=== PATIENT | female | born 1960 | race Asian ===

== ENCOUNTER → 2020-02-20 13:53 | Outpatient (BNVA) | payer OTHER, SELFPAY | PROVIDERS: PCP Internal Medicine; Visit Provider Urology | DX: Z48.816 Encounter for surgical aftercare following surgery on the genitourinary system (principal); Z87.448 Personal history of other diseases of urinary system | CPT/HCPCS: 51798; 81002; 99212 ==

== ENCOUNTER 2020-02-21 16:37 | Outpatient (REF) | payer OTHER, SELFPAY ==
--- NOTE | 2020-02-21 16:42 | MM_ITS ---
EXAMINATION: MM SCREENING DIGITAL BREAST TOMOSYNTHESIS, BILATERAL CLINICAL INFORMATION: Screening. Asymptomatic. The lifetime risk of breast cancer based on the Tyrer-Cuzick Model is 6%. COMPARISON: Mammography: 01/28/2018 TECHNIQUE: Digital breast tomosynthesis is performed in both the craniocaudal and mediolateral oblique views along with computer-aided detection (CAD). Synthesized 2D images are generated from the tomosynthesis. FINDINGS: There are scattered areas of fibroglandular density (ACR BI-RADS breast composition Category b). There are no significant masses, abnormal calcifications, or other abnormalities. Parenchymal pattern is similar to prior exam. The skin contours are smooth. There are no significant changes. MM/MM tomosynthesis screening BI IMPRESSION: No mammographic evidence of malignancy. ASSESSMENT: BI-RADS 1: Negative RECOMMENDATION: Routine annual mammography screening. This patient's information was entered into a reminder system with a target due date for their next mammogram.
== END 2020-02-21 16:38 | disposition home or self-care (01) ==
LOC: HO.MAMMO 16:37
PROVIDERS: PCP Internal Medicine; Visit Provider Internal Medicine
DX: Z12.31 Encounter for screening mammogram for malignant neoplasm of breast (principal)
CPT/HCPCS: 77063; 77067

== ENCOUNTER → 2020-03-28 10:00 | Outpatient (BNVA) | payer OTHER, SELFPAY | PROVIDERS: PCP Internal Medicine; Visit Provider Physician Assistant | DX: Z76.89 Persons encountering health services in other specified circumstances (principal) ==

== ENCOUNTER 2020-04-03 10:07 | Day surgery (SDC) | payer OTHER, SELFPAY ==
--- NOTE | 2020-04-03 10:17 | HO.ANESPROP2 ---
[facility] Past Medical History Medical History (Updated 03/28/20 @ 14:16 by Bibiana aMza PA-C) Acid reflux H pylori ulcer Hemoptysis Nausea RAFFI (stress urinary incontinence, female) Surgical History Surgical History (Updated 03/28/20 @ 10:02 by Lizzy Crystal) History of colonoscopy History of esophagogastroduodenoscopy (EGD) Social History Social History (Updated 03/28/20 @ 14:02 by Bibiana Maza PA-C) Alcohol intake: never Smoking Status: Never smoker Advance Directives: No Advance Directives Information Provided: Yes Meds Allergies Allergy/AdvReac Type Severity Reaction Status Date / Time No Known Allergies Allergy Verified 02/20/20 14:05 [No Known Allergies*] Home Medications Medication Instructions Recorded Confirmed Type amlodipine 10 mg tablet 10 mg PO DAILY 02/20/20 03/28/20 History omeprazole 20 mg capsule,delayed 20 mg PO Q12H 02/20/20 03/28/20 History release Exam Exam Date and Time: April 03, 2020 1017 Airway Mallampati Class: II TM Dist: >3cm Neck ROM: Full Loose/Missing/Broken Teeth: No Heart: RRR Lungs: CTA Assessment and Plan Assessment Anesthesia Assessment: Anesthesia Plan Discussed and Chart Reviewed Final Anesthetic Review NPO: Yes ASA Class: II Final Preanesthetic Review: Meds/Allgs Chart Reviewed, Consent Obtained/Reviewed and Anes Risks/Benef Reviewed Patient Risk: Low Procedure Risk: Intermediate Anesthetic Plan Anesthetic Plan: MAC: Disposition: Standard PACU
[2020-04-03 10:32] VITALS: BP 132/71; PULSE 62; RESP 16; TEMP 36.7; O2SAT 98; BMI 27.4
[2020-04-03] MEDS: Lactated Ringers 1,000 ML 50 ML IVCONT (10:48)
--- NOTE | 2020-04-03 10:53 | MHC.SHP ---
Pre-Procedural Eval Section A The patient is an INPATIENT: No Changes since office visit: Yes Patient answered all questions; No Cold of Flu in the past 2 weeks, No New Medical Problems and No Changes in Medication The History & Physical has been completed within 30 days and I have reviewed it.: Yes Section B Chief Complaint: reflux Allergies: Allergies Allergy/AdvReac Type Severity Reaction Status Date / Time No Known Allergies Allergy Verified 02/20/20 14:05 [No Known Allergies*] Plan I have reviewed the history and physical and performed a pertinent physical examination on my patient. No changes have occurred unless specified.
--- NOTE | 2020-04-03 11:11 | PM.PROC ---
Brief Operative Note Date of procedure: 04/03/20 Pre-op diagnosis: Intractable reflux, pain, despite acid suppression. Post-op diagnosis: other (Distal esophagitis-Grade 1, Superficial gastritis) Procedure: EGD with BX Video endoscope was introduced with out difficulty. Arytenoid Cartilages edema and mild medial erythema--cords clear. Esophageal mucosa was normal to distal 2 cm--erythema and no erosions. stomach some bile present, distal erythema.Duodenal Bulb and duodenum normal appearing biopsies. Anesthesia: MAC (RICCI Pepper) Surgeon: Lesley Jeong Estimated blood loss (mL): 5 Pathology: other (random gastric) Condition: stable Disposition: other (To followup with TELEVISIT to office in 1-3 weeks.)
[2020-04-03 11:15] VITALS: BP 117/70; PULSE 63; RESP 16; TEMP 36.8
[2020-04-03 11:31] VITALS: BP 122/72; PULSE 61; RESP 18; O2SAT 99
== END 2020-04-03 12:01 | disposition home or self-care (01) ==
PROVIDERS: PCP Internal Medicine; Visit Provider Internal Medicine Gastroenterology
PROC: 0DJ08ZZ Inspection of Upper Intestinal Tract, Via Natural or Artificial Opening Endoscopic (ICD-10-PCS; CPT 43235; principal; 2020-04-03 11:50)
DX: K21.00 Gastro-esophageal reflux disease with esophagitis, without bleeding (principal); K29.30 Chronic superficial gastritis without bleeding; Z79.899 Other long term (current) drug therapy
CPT/HCPCS: 43239; 88305; 88342

== ENCOUNTER → 2020-04-23 09:16 | Outpatient (BNVA) | payer OTHER, SELFPAY | PROVIDERS: PCP Internal Medicine; Visit Provider Physician Assistant ==

== ENCOUNTER → 2022-05-22 08:21 | Outpatient (BNVA) | payer OTHER, SELFPAY | PROVIDERS: PCP Internal Medicine; Visit Provider Physician Assistant | DX: Z12.11 Encounter for screening for malignant neoplasm of colon (principal) | CPT/HCPCS: 99212 ==

== ENCOUNTER 2022-06-12 14:12 | Outpatient (REF) | payer OTHER, SELFPAY ==
--- NOTE | ~2022-06-12 | XR_ITS ---
EXAMINATION: XR LUMBOSACRAL SPINE CLINICAL INFORMATION: Chronic bilateral low back pain. COMPARISON: None available. TECHNIQUE: 3 views of the lumbosacral spine. FINDINGS: Vertebral body heights are normal. No fractures. There is 2 mm of anterolisthesis of L4 on L5. No additional spondylolisthesis. Endplate osteophytes are evident at L3-L4. Intervertebral disc heights appear relatively well preserved. Mild facet arthropathy is suspected in the lower lumbar spine at L4-L5 and L5-S1. SI joints are normal. There is a 4 mm calcification in the right midabdomen at the level of the right L3 transverse process. This may correspond to a ureteral calculus. XR/XR lumbar spine 2-3V IMPRESSION: 1. Mild facet arthropathy in the lower lumbar spine with grade 1 anterolisthesis of L4 on L5. 2. A 4 mm calcification in the right midabdomen at the level of the L3 transverse process which may correspond to a ureteral calculus.
== END 2022-06-12 14:13 | disposition home or self-care (01) ==
LOC: HO.XRAY 14:12
PROVIDERS: Visit Provider Internal Medicine
DX: G89.29 Other chronic pain (principal); M54.50 Low back pain, unspecified
CPT/HCPCS: 72100

== ENCOUNTER 2022-07-24 16:01 | Outpatient (REF) | payer OTHER, SELFPAY ==
--- NOTE | ~2022-07-24 | MM_ITS ---
EXAMINATION: MM SCREENING DIGITAL BREAST TOMOSYNTHESIS, BILATERAL CLINICAL INFORMATION: Screening. Asymptomatic. The lifetime risk of breast cancer based on the Tyrer-Cuzick Model is 4%. COMPARISON: Mammography: 02/21/2020, 01/28/2018 (new baseline). TECHNIQUE: Digital breast tomosynthesis is performed in both the craniocaudal and mediolateral oblique views along with computer-aided detection (CAD). Synthesized 2D images are generated from the tomosynthesis. Additional right MLO view is provided. FINDINGS: There are scattered areas of fibroglandular density (ACR BI-RADS breast composition Category b). There are no significant masses, abnormal calcifications, or other abnormalities. Parenchymal pattern is similar to prior studies. There is no developing density or architectural abnormality. The axilla and skin contours are unremarkable. No significant changes. MM/MM tomosynthesis screening BI IMPRESSION: No mammographic evidence of malignancy. ASSESSMENT: BI-RADS 1: Negative RECOMMENDATION: Routine annual mammography screening. This patient's information was entered into a reminder system with a target due date for their next mammogram.
== END 2022-07-24 16:02 | disposition home or self-care (01) ==
LOC: HO.MAMMO 16:01
PROVIDERS: PCP Internal Medicine; Visit Provider Internal Medicine
DX: Z12.31 Encounter for screening mammogram for malignant neoplasm of breast (principal)
CPT/HCPCS: 77063; 77067

== ENCOUNTER 2022-11-19 17:35 | Outpatient (REF) | payer OTHER, SELFPAY ==
[2022-11-19 19:00] LABS: Influenza A PCR NEGATIVE (Negative); Influenza B PCR NEGATIVE (Negative); Resp Syncy Virus RNA Qual PCR NEGATIVE (Negative); SARS COV2 PCR INHOUSE NEGATIVE (Negative)
== END 2022-11-19 17:36 | disposition home or self-care (01) ==
LOC: HO.HHCLNP 17:35
PROVIDERS: Visit Provider Emergency Medicine
DX: Z20.822 Contact with and (suspected) exposure to COVID-19 (principal); R68.89 Other general symptoms and signs
CPT/HCPCS: 0241U

== ENCOUNTER 2022-12-09 15:04 | Outpatient (REF) | payer OTHER, SELFPAY | END 2022-12-09 15:05 | disposition home or self-care (01) | LOC: HO.HHCX 15:04 | PROVIDERS: Visit Provider Internal Medicine | DX: M25.552 Pain in left hip (principal); M25.561 Pain in right knee; M25.562 Pain in left knee | CPT/HCPCS: 73502; 73560 ==

== ENCOUNTER 2023-01-30 11:25 | Day surgery (SDC) | payer OTHER, SELFPAY ==
--- NOTE | 2023-01-29 10:13 | P.CONAN_ITS ---
Documented by User: Macarena Garcia NP 01/29/23 10:13 HPI - Anesthesia Eval Consult details Narrative: 62yo F for Colonoscopy [facility] [place] Active Problems Active Problems: All Active Problems (Updated 05/22/22 @ 10:56 by Bibiana Maza PA-C) Encounter for screening colonoscopy (Acute) Nausea (Acute) Hemoptysis (Acute) Acid reflux (Acute) Past Medical History Medical History H pylori ulcer Nausea Hemoptysis Acid reflux RAFFI (stress urinary incontinence, female) Surgical History Surgical History History of colonoscopy History of esophagogastroduodenoscopy (EGD) Social History Social History Household Members: Family Household Members Other:: daughter Alcohol intake: never Patient Tobacco Use Status: Never used Tobacco Use of substances other than those prescribed or required for medical reasons: No Are you DNR?: No Advance Directives: No Advance Directives Information Provided: Yes Current occupational status: unemployed Meds Allergies Allergy/AdvReac Type Severity Reaction Status Date / Time No Known Allergies Allergy Verified 01/30/23 12:05 [No Known Allergies*] Home Medications Medication Instructions Recorded Confirmed Last Taken Type amlodipine 10 mg tablet 10 mg PO DAILY 02/20/20 01/30/23 01/29/23 History omeprazole 20 mg capsule,delayed 20 mg PO Q12H 02/20/20 01/30/23 01/29/23 History release cholecalciferol (vitamin D3) 50 50 mcg PO DAILY 05/22/22 01/30/23 01/29/23 History mcg (2,000 unit) capsule (Vitamin D3) Assessment and Plan Assessment Anesthesia Assessment: Chart Reviewed Documented by User: Brenda Person MD 01/30/23 14:37 [facility] [place] Past Medical History Medical History H pylori ulcer Nausea Hemoptysis Acid reflux RAFFI (stress urinary incontinence, female) Family History Family history of problems with anesthesia: No Surgical History Surgical History History of colonoscopy History of esophagogastroduodenoscopy (EGD) History of Problems with Anesthesia: No Social History Social History Household Members: Family Household Members Other:: daughter Alcohol intake: never Patient Tobacco Use Status: Never used Tobacco Use of substances other than those prescribed or required for medical reasons: No Are you DNR?: No Advance Directives: No Advance Directives Information Provided: Yes Current occupational status: unemployed Meds Allergies Allergy/AdvReac Type Severity Reaction Status Date / Time No Known Allergies Allergy Verified 01/30/23 12:05 [No Known Allergies*] Home Medications Medication Instructions Recorded Confirmed Last Taken Type amlodipine 10 mg tablet 10 mg PO DAILY 02/20/20 01/30/23 01/29/23 History omeprazole 20 mg capsule,delayed 20 mg PO Q12H 02/20/20 01/30/23 01/29/23 History release cholecalciferol (vitamin D3) 50 50 mcg PO DAILY 05/22/22 01/30/23 01/29/23 History mcg (2,000 unit) capsule (Vitamin D3) Exam Airway Mallampati Class: II (denies any loose missing/loose) TM Dist: >3cm Neck ROM: Full Heart: rrr Lungs: cta Assessment and Plan Assessment Anesthesia Assessment: Anesthesia Plan Discussed Final Anesthetic Review Family History of Problems with Anesthesia: No History of Problems with Anesthesia: No NPO: Yes ASA Class: II Final Preanesthetic Review: No Changes in Pt Med Stat, Meds/Allgs Chart Reviewed and Consent Obtained/Reviewed Patient Risk: Intermediate Procedure Risk: Intermediate Anesthetic Plan Anesthetic Plan: MAC: Disposition: Standard PACU
[2023-01-30 11:55] VITALS: BMI 27.8
[2023-01-30] MEDS: Lactated Ringers 1,000 ML 100 ML IVCONT (12:18)
[2023-01-30 12:19] VITALS: BP 148/82; PULSE 69; RESP 16; TEMP 36.1; O2SAT 97
--- NOTE | 2023-01-30 12:38 | MHC.SHP ---
Pre-Procedural Eval Section A Date of Service: 01/30/23 The patient is an INPATIENT: No The History & Physical has been completed within 30 days and I have reviewed it.: No Section B Chief Complaint: screening Relevant Family History (Specify if Yes): No Relevant Social History: None Present Medications: see Short Stay Collaborative assessment Medical History: Significant History (Acid reflux H pylori ulcer Hemoptysis Nausea RAFFI (stress urinary incontinence, female)) History of Previous Operations: Relevant previous surgery/procedure and date(s) Allergies: Allergies Allergy/AdvReac Type Severity Reaction Status Date / Time No Known Allergies Allergy Verified 01/30/23 12:05 [No Known Allergies*] Plan Diagnosis/Plan: Unchanged I have reviewed the history and physical and performed a pertinent physical examination on my patient. No changes have occurred unless specified. Time Spent With Patient Time: Total time managing care of this patient today ____ minutes.
--- NOTE | 2023-01-30 14:39 | PC.NURSE ---
Multiple attempts made to secure [employer]. 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 Francesco ([employer] aware). Daughter Radha used for translation via 3 way call as all resources had been exhausted.
--- NOTE | 2023-01-30 14:39 | W.PM.OPN ---
Operative Note Operative Note Date of Service: 01/30/23 Narrative: COLONOSCOPY TILL CECUM WITH SNARE POLYPECTOMY Pre-op diagnosis: colon cancer screening (per pt - she had a negative colon 9 [place] pt[place]) Post-op diagnosis:? Colon polyps, diverticulosis, hemorrhoids Endoscopist:? Kt Hunt MD Anesthesia:?MAC Consent: Indications for the procedure and potential complications of bleeding, perforation, reaction to medications and missed diagnosis were discussed with the patient and informed consent was obtained. Instrument: Olympus PCF H 190 L variable stiffness pediatric colonoscope Monitoring: Vital signs and clinical assessment, intermittent blood pressure monitoring, continuous EKG monitoring, Pulse oximetry and Carbon Dioxide monitoring were done throughout the procedure. Please see anesthesia flowsheet. Colon withdrawl time was 15 minutes. Procedure: The patient was placed in the left lateral decubitis position and pre-procedure medications were administered. After a digital rectal examination of the ano-rectum, the video colonoscope was inserted into the rectum and advanced through the colon to the cecum. The colonoscope was slowly withdrawn in a retrograde panoramic fashion and the colon mucosa was carefully examined including a retroflexed view of the rectum. Findings and interventions are described below. Procedure Difficulty: Without difficulty Findings: Terminal Ileum: Not evaluated Cecum: Two 7-8 mm sessile polyps - removed with a cold snare Ascending Colon: A 9-10 mm sessile polyp at the hepatic flexure - removed with a hot snare Transverse Colon: A 12-15 mm sessile polyp - removed with a hot snare Descending Colon: Normal Sigmoid Colon: Moderate diverticulosis Rectum: Normal Ano-rectum: Moderate internal hemorrhoids Colon preparation: Good Impression and Post Procedure Diagnosis: Colonoscopy Findings: Two small and two medium sized polyps removed Moderate diverticulosis seen in the sigmoid colon Moderate hemorrhoids on retroflexed exam. Plan: Await pathology results Patient has an appointment on 02/09/23 in the GI Clinic with KATHARINE De Jesus. Repeat Colonoscopy interval based on path results - in 3-5 years if polyps are adenomatous and 10 years if polyps are hyperplastic. Above findings were reviewed with the patient and colon polyps and diverticulosis handouts were given in the discharge area
[2023-01-30 15:10] VITALS: BP 111/50; PULSE 61; RESP 16; TEMP 36.5; O2SAT 99
[2023-01-30 15:25] VITALS: BP 113/52; PULSE 63; RESP 16; O2SAT 99
[2023-01-30 15:40] VITALS: BP 119/56; PULSE 57; RESP 16; O2SAT 99
[2023-01-30 15:55] VITALS: BP 126/62; PULSE 62; RESP 16; O2SAT 99
== END 2023-01-30 16:19 | disposition home or self-care (01) ==
PROVIDERS: Visit Provider Internal Medicine Gastroenterology
PROC: 0DJD8ZZ Inspection of Lower Intestinal Tract, Via Natural or Artificial Opening Endoscopic (ICD-10-PCS; CPT 45378; principal; 2023-01-30 13:10)
DX: Z12.11 Encounter for screening for malignant neoplasm of colon (principal); D12.2 Benign neoplasm of ascending colon; D12.3 Benign neoplasm of transverse colon; K63.5 Polyp of colon; K57.30 Diverticulosis of large intestine without perforation or abscess without bleeding; K64.8 Other hemorrhoids; K21.9 Gastro-esophageal reflux disease without esophagitis; K25.9 Gastric ulcer, unspecified as acute or chronic, without hemorrhage or perforation; B96.81 Helicobacter pylori [H. pylori] as the cause of diseases classified elsewhere; N39.3 Stress incontinence (female) (male); R04.2 Hemoptysis; Z79.899 Other long term (current) drug therapy
CPT/HCPCS: 45385; 88305; J2704

== ENCOUNTER → 2023-01-30 11:25 | Outpatient (BNV) | payer OTHER, SELFPAY | PROVIDERS: Visit Provider Internal Medicine Gastroenterology | DX: Z12.11 Encounter for screening for malignant neoplasm of colon (principal); D12.2 Benign neoplasm of ascending colon; D12.3 Benign neoplasm of transverse colon; K57.30 Diverticulosis of large intestine without perforation or abscess without bleeding | CPT/HCPCS: 45385 ==

== ENCOUNTER 2023-02-09 10:07 | Outpatient (AMB) | payer OTHER, SELFPAY ==
--- NOTE | 2023-02-09 10:18 | A.OFFVIS_ITS ---
Intake Vital Signs 02/09/23 10:19 Height 5 ft 3 in Weight 152 lb BMI 26.9 BP 136/63 Blood Pressure Location Lt brachial Position Sitting Pulse 63 Intake Visit Reasons: s/p colon Intake Note: Patient follow up for Colonoscopy results. Patient cc: Sticky BM and denies any other GI issues. Division Human Resources Manager Required: No Accompanied by: Family/Other Allergies No Known Allergies [No Known Allergies*] Allergy (Verified 02/09/23 10:15) Medication List - Last Reconciled 02/09/23 by Bibiana Maza PA-C amlodipine 10 mg PO DAILY cholecalciferol (vitamin D3) (Vitamin D3) 50 mcg PO DAILY omeprazole 20 mg PO Q12H HPI HPI Comments History of Present Illness Details A 62-year-old female follows up after recent screening colonoscopy with polypectomy. She has a family member who interprets for her She tolerated procedures well Reviewed procedure report, pathology and recommendation Opportunity for questions answered to the satisfaction She has a normal bowel pattern she does not have constipation Appetite is very good no issues No nausea, vomiting, hematemesis, hematochezia fever or chills PFSH Medical History (Updated 02/09/23 @ 10:37 by Bibiana Maza PA-C) H pylori ulcer Nausea Hemoptysis Acid reflux RAFFI (stress urinary incontinence, female) Surgical History History of esophagogastroduodenoscopy (EGD) History of colonoscopy Social History Household Members: Family Household Members Other:: daughter Alcohol intake: never Patient Tobacco Use Status: Never used Tobacco Current occupational status: unemployed Review of Systems Const All systems reviewed & are unremarkable except as noted in HPI and below Physical Exam Vital Signs: Last Vital Signs Pulse 63 02/09/23 10:19 BP 136/63 02/09/23 10:19 BMI result Body Mass Index 26.9 Const General: cooperative, healthy appearing and comfortable Orientation/consciousness: patient oriented x3 Limitations: language barrier Resp Effort & Inspection: normal respiratory effort and able to speak in complete sentences Skin General skin exam: no rashes or lesions noted Neuro General: patient oriented x3 Extrem General: Yes full ROM Psych Appearance: grossly normal and well kempt Mental Status: mental status grossly normal Attitude: cooperative Thought content: Normal thought content present Results Reviewed Results Reviewed: indings: Terminal Ileum: Not evaluated Cecum: Two 7-8 mm sessile polyps - removed with a cold snare Ascending Colon: A 9-10 mm sessile polyp at the hepatic flexure - removed with a hot snare Transverse Colon: A 12-15 mm sessile polyp - removed with a hot snare Descending Colon: Normal Sigmoid Colon: Moderate diverticulosis Rectum: Normal Ano-rectum: Moderate internal hemorrhoids Colon preparation: Good Impression and Post Procedure Diagnosis: Colonoscopy Findings: Two small and two medium sized polyps removed Moderate diverticulosis seen in the sigmoid colon Moderate hemorrhoids on retroflexed exam. Plan: Await pathology results Patient has an appointment on 02/09/23 in the GI Clinic with KATHARINE De Jesus. Repeat Colonoscopy interval based on path results - in 3-5 years if polyps are adenomatous and 10 years if polyps are hyperplastic. Above findings were reviewed with the patient and colon polyps and diverticulosis handouts were given in the discharge area Name: Car Aggarwal Age/Sex: 62/F Attending: Kt Hunt MD : 1960 Submitted by: Kt Hunt MD Copies to: [facility] MR #: [id number] Status: [facility] Collected: 01/30/23 Location: [facility] Received: 02/02/23 Diagnosis A. Cecum, polypectomies: Colonic mucosa with mild surface hyperplastic changes. B. Colon, ascending, polypectomies: Tubular adenoma (one); negative for high- grade dysplasia or carcinoma. C. Colon, transverse, polypectomy: Fragments of tubular adenoma; negative for high-grade dysplasia or carcinoma. Clinical History Pre-Op Dx: Screening Post-Op Dx: Colon polyps Microscopic Description A-C. Microscopic sections reviewed. Material Received A. Polyps cecum B. Polyps ascending colon C. Polyp transverse colon Gross Description Received in 3 parts. Part A: Received in formalin labeled ?cecum polyps? 2 pieces of watts tissue measuring 0.7 cm, all submitted in cassette labeled A. Part B: Received in formalin labeled ?ascending colon polyp? 1 piece of watts tissue measuring 0.3 cm, all submitted in cassette labeled B. Part C: Received in formalin labeled ?transverse colon polyp? 1 piece of watts tissue measuring 1.4 cm, dissected in 2 equal parts, all submitted in cassette labeled C. Patient: Car Aggarwal Age/Sex: 62/F MR#: [id number] Page 1 of 2 You should undergo a colonoscopy again in 3 years Assessment & Plan Assessment & Plan (1) Tubular adenoma: Code(s): D36.9 - Benign neoplasm, unspecified site Plan: Repeat asymptomatic colonoscopy 3 years (2) Diverticulosis of colon: Code(s): K57.30 - Diverticulosis of large intestine without perforation or abscess without bleeding Plan: Maintain high-fiber ER protocol reviewed (3) Hemorrhoids: Code(s): K64.9 - Unspecified hemorrhoids Plan: Maintain high-fiber diet Avoids straining Patient Instructions: Repeat asymptomatic colonoscopy 3 years sooner if indicated Avoid straining with hemorrhoids Maintain high-fiber diet Diverticulosis/diverticulitis ER protocol reviewed Literature given, copy of procedure report given as requested Encouraged to call questions or concerns Coding Level of Care Code Est Pt Level 3 (23734) Diagnoses Tubular adenoma D36.9 Diverticulosis of colon K57.30 Hemorrhoids K64.9 Time Spent (min) 25 Comment Division Human Resources Manager
[2023-02-09 10:19] VITALS: BP 136/63; PULSE 63; BMI 26.9
== END 2023-02-09 11:11 | disposition home or self-care (01) ==
PROVIDERS: Visit Provider Physician Assistant
DX: D36.9 Benign neoplasm, unspecified site (principal); K57.30 Diverticulosis of large intestine without perforation or abscess without bleeding; K64.9 Unspecified hemorrhoids
CPT/HCPCS: 99213

== ENCOUNTER → 2023-02-09 10:07 | Outpatient (BNVA) | payer OTHER, SELFPAY | PROVIDERS: Visit Provider Physician Assistant | DX: K57.30 Diverticulosis of large intestine without perforation or abscess without bleeding (principal); K64.9 Unspecified hemorrhoids; D36.9 Benign neoplasm, unspecified site | CPT/HCPCS: 99212 ==

== ENCOUNTER 2023-02-16 10:16 | Outpatient (REF) | payer OTHER, SELFPAY ==
--- NOTE | ~2023-02-16 | XR_ITS ---
EXAMINATION: XR ANKLE, RIGHT CLINICAL INFORMATION: Acute right ankle pain. COMPARISON: None available. TECHNIQUE: AP, lateral, and mortise views of the right ankle. FINDINGS: Mild displaced, oblique fracture through the distal fibular metaphysis with posterior displacement of the distal fracture fragment measuring up to 0.2 cm in AP dimension. The ankle mortise is maintained. No joint space narrowing or marginal osteophytes. No osseous erosion. Dystrophic calcification associated with the Achilles insertion. Prominent circumferential soft tissue swelling. XR/XR ankle RT 2V IMPRESSION: 1. Mildly displaced, oblique fracture through the distal fibular metaphysis. 2. Prominent circumferential soft tissue swelling.
== END 2023-02-16 10:17 | disposition home or self-care (01) ==
LOC: HO.XRAY 10:16
PROVIDERS: PCP Internal Medicine; Visit Provider Student in an Organized Health Care Education/Training Program
DX: M25.571 Pain in right ankle and joints of right foot (principal)
CPT/HCPCS: 73600

== ENCOUNTER 2023-03-23 13:49 | Outpatient (REF) | payer OTHER, SELFPAY ==
[2023-03-27 06:24] LABS: HPV mRNA E6/E7 rflx Not Detected (Not Detected)
[2023-03-27 08:39] LABS: C. trachomatis RNA TMA NOT DETECTED (NOT DETECTED); N. gonorrhoeae RNA TMA NOT DETECTED (NOT DETECTED)
[2023-03-27 09:48] LABS: Trichomonas (NAAT) NOT DETECTED (NOT DETECTED)
== END 2023-03-23 13:50 | disposition home or self-care (01) ==
LOC: HO.HHCLNP 13:49
PROVIDERS: Visit Provider Internal Medicine
DX: Z12.4 Encounter for screening for malignant neoplasm of cervix (principal); Z11.51 Encounter for screening for human papillomavirus (HPV); Z11.3 Encounter for screening for infections with a predominantly sexual mode of transmission; N89.8 Other specified noninflammatory disorders of vagina
CPT/HCPCS: 36415; 81513; 87491; 87591; 87624; 87661; 88142

== ENCOUNTER 2023-10-01 15:51 | Outpatient (REF) | payer OTHER, SELFPAY ==
--- NOTE | ~2023-10-01 | MM_ITS ---
EXAMINATION: MM SCREENING DIGITAL BREAST TOMOSYNTHESIS, BILATERAL CLINICAL INFORMATION: Screening. Asymptomatic. COMPARISON: Mammography: This study is compared with prior exams dating back to 2018. TECHNIQUE: Digital breast tomosynthesis is performed in both the craniocaudal and mediolateral oblique views along with computer-aided detection (CAD). Synthesized 2D images are generated from the tomosynthesis. FINDINGS: There are scattered areas of fibroglandular density (ACR BI-RADS breast composition Category b). There are no significant masses, abnormal calcifications, or other abnormalities. MM/MM tomosynthesis screening BI IMPRESSION: No mammographic evidence of malignancy. ASSESSMENT: BI-RADS BI-RADS 1 - Negative RECOMMENDATION: Routine annual mammography screening. 1 year F/U This examination should not preclude the clinical evaluation of a suspicious palpable abnormality. This patient's information was entered into a reminder system with a target due date for their next mammogram. Electronically signed by: Makenzie Nguyen MD 10/26/2023 02:39 AM EDT
== END 2023-10-01 15:52 | disposition home or self-care (01) ==
LOC: HO.MAMMO 15:51
PROVIDERS: PCP Internal Medicine; Visit Provider Internal Medicine
DX: Z12.31 Encounter for screening mammogram for malignant neoplasm of breast (principal)
CPT/HCPCS: 77063; 77067

== ENCOUNTER → 2023-10-01 16:00 | Outpatient (BNV) | payer OTHER, SELFPAY | PROVIDERS: PCP Internal Medicine; Visit Provider Radiology Diagnostic Radiology | DX: Z12.31 Encounter for screening mammogram for malignant neoplasm of breast (principal) | CPT/HCPCS: 77063; 77067 ==

== ENCOUNTER 2023-12-17 15:31 | Outpatient (REF) | payer OTHER, SELFPAY ==
[2023-12-17 16:25] LABS: MANUAL DIFF FLAG NO
[2023-12-17 16:29] LABS: Basophils Percent Auto 0.3 % (0-2); Eosinophils Percent Auto 0.5 % (0-4); Hematocrit 35.8 % (37.0-47.0); Hemoglobin 11.6 g/dl (12.0-16.0); Imm Gran Abs Auto 0.02 X10*3/uL (0.00-0.03); Imm Gran Pct Auto 0.3 % (0.0-0.4); Lymphocytes Absolute Auto 2.3 X10*3/uL (1.2-4.9); Mean Corpuscular HGB Conc 32.4 g/dl (31.0-35.0); Mean Corpuscular Hemoglobin 28.9 pg (27.0-33.0); Mean Corpuscular Volume 89.1 fL (80.0-98.0); Mean Platelet Volume 9.9 fL (9.4-12.3); Monocytes Absolute Auto 0.5 X10*3/uL (0.1-1.2); Monocytes Percent Auto 7.6 % (2-11); Neutrophils Absolute Auto 3.2 x10*3/uL (2.0-8.3); Neutrophils Percent Auto 53.3 % (45-73); Platelet Count 322 X10*3/uL (160-400); Red Blood Count 4.02 X10*6/uL (4.20-5.50); Red Cell Distribution Width 12.9 % (11.0-16.0)
[2023-12-17 16:43] LABS: Estimated Average Glucose 111 mg/dL; Hemoglobin A1C 110.3032 umol/L; Hemoglobin A1c % 5.5 % (<6.0); Total Hemoglobin (HGBA1C) 3010.2274 umol/L
[2023-12-17 17:05] LABS: Alanine Aminotransferase 14 U/L (0-31); Alkaline Phosphatase 53 U/L (39-117); Anion Gap 11 (12-20); Aspartate Amino Transferase 15 U/L (5-31); Bilirubin Total 0.3 mg/dL (0.0-1.0); Blood Urea Nitrogen 12 mg/dL (9-16); Calcium 9.5 mg/dL (8.4-10.2); Carbon Dioxide 29 mmol/L (22-29); Chloride 106 mmol/L (96-108); Cholesterol 207 mg/dL (<200); Estimated Glomerular Filt Rate > 60; Glucose Random 101 mg/dL (60-115); HDL Cholesterol 47 mg/dL (>40); LDL Cholesterol Calculated 134 mg/dL (<100); Potassium 3.5 mmol/L (3.3-5.1); Sodium 142 mmol/L (135-145); Total Protein 7.6 g/dL (6.5-8.0); Triglycerides 133 mg/dL (<150)
[2023-12-17 17:20] LABS: TSH reflex Free T4 1.04 uIU/mL (0.32-4.0); Vitamin D 25-OH Total 31.3 ng/mL (>30)
[2023-12-18 07:48] LABS: HIV AB/AG Nonreactive (Nonreactive); HIV Num 1 0.07 S/CO (0.00-0.99); ~HepC Num1 0.64 S/CO (0.00-0.79); ~Hepatitis C Antibody Nonreactive (Nonreactive)
== END 2023-12-17 15:32 | disposition home or self-care (01) ==
LOC: HO.HHCL 15:31
PROVIDERS: Visit Provider Internal Medicine
DX: Z00.00 Encounter for general adult medical examination without abnormal findings (principal)
CPT/HCPCS: 36415; 80053; 80061; 82306; 83036; 84443; 85025; 86803; 87389

== ENCOUNTER → 2024-10-20 15:45 | Outpatient (BNV) | payer MEDICAID, SELFPAY | PROVIDERS: PCP Internal Medicine; Visit Provider Internal Medicine | DX: Z12.31 Encounter for screening mammogram for malignant neoplasm of breast (principal) | CPT/HCPCS: 77063; 77067 ==

== ENCOUNTER 2024-10-20 15:47 | Outpatient (REF) | payer MEDICAID, SELFPAY ==
--- NOTE | ~2024-10-20 | MM_ITS ---
EXAMINATION: MM SCREENING DIGITAL BREAST TOMOSYNTHESIS, BILATERAL CLINICAL INFORMATION: Screening. Asymptomatic. COMPARISON: Mammography: Comparison is made with available priors TECHNIQUE: Digital breast mammography with tomosynthesis is performed in both the craniocaudal and mediolateral oblique views along with computer-aided detection (CAD). FINDINGS: There are scattered areas of fibroglandular density (ACR BI-RADS breast composition Category b). There are no significant masses, abnormal calcifications, or other abnormalities. MM/MM tomosynthesis screening BI IMPRESSION: No mammographic evidence of malignancy. ASSESSMENT: BI-RADS BI-RADS 1 - Negative RECOMMENDATION: Routine annual mammography screening. 1 year F/U This examination should not preclude the clinical evaluation of a suspicious palpable abnormality. This patient's information was entered into a reminder system with a target due date for their next mammogram. Electronically signed by: Corina Baig DO 10/25/2024 09:02 AM ILIANA
--- OUTSIDE RECORDS SUMMARY | 2024-10-20 15:50 | XMS_ITS | Clinical Summary ---
Author Organization [employer] Address [address] [facility] [address] [place] [address] Care Team Providers Care Auctioneer Tobacco Name Role Phone Columba Thompson MD Primary Care Provide r Allergies No known active allergies Medications cholecalciferol (Vitamin D-3) 25 MCG (1000 UT) tabletIndications :Vitamin D insufficiency Take 1 tablet (25 mcg) by mouth in the morning. 60 tablet 1 023 Active esomeprazole (NexIUM) 40 MG packetIndications :Gastroesophageal reflux disease, unspecified whether esophagitis present Take 40 mg by mouth before breakfast. 30 each 1 023 Active docusate sodium (Colace) 100 MG capsuleIndication s:Gastroesophagea l reflux disease, unspecified whether esophagitis present TAKE NEEDED IF CONSTIPATION 10 capsule 023 Active D3 Super Strength 50 MCG (2000 UT) capsule TAKE 1 CAPSULE BY MOUTH EVERY DAY 90 capsule 3 023 Active azithromycin (Zithromax Z-Varun) 250 MG tablet Take 2 tablets once on day 1, then 1 tablet 1x/day for 4 days. 6 tablet 023 Active pravastatin (Pravachol) 10 MG tabletIndications :Essential hypertension Take 1 tablet (10 mg) by mouth Once per day. 30 tablet 11 024 2024 Active simethicone (Mylicon,Gas-X) 180 MG capsuleIndication s:Gastroesophagea l reflux disease, unspecified whether esophagitis present Take 1 capsule (180 mg) by mouth every 8 (eight) hours if needed for flatulence (take as needed with meals 3 times a day). 90 capsule 1 024 Active Ketotifen Fumarate 0.035 % solutionIndicatio ns:Allergic conjunctivitis of both eyes ADMINISTER 1 DROP INTO AFFECTED EYE(S) EVERY 12 (TWELVE) HOURS IF NEEDED (ONE DROP IN EACH EYE TWICE A DAY IF NEEDED). 10 mL 1 025 Active esomeprazole (NexIUM) [address] capsuleIndication s:Gastroesophagea l reflux disease, unspecified whether esophagitis present TAKE 1 CAPSULE BY MOUTH EVERY DAY WITH BREAKFAST 90 capsule 025 Active Diclofenac Sodium 1 % gelIndications:Ch ronic bilateral low back pain without sciatica APPLY 1 EACH TOPICALLY EVERY 12 (TWELVE) HOURS IF NEEDED (APPLY ON AFFECTED AREA). 100 g 2 025 Active amLODIPine (Norvasc) 10 MG tabletIndications :Essential hypertension TAKE 1 TABLET BY MOUTH EVERY DAY IN THE MORNING 90 tablet 025 Active amLODIPine (Norvasc) 10 MG tabletIndications :Essential hypertension TAKE 1 TABLET BY MOUTH EVERY DAY IN THE MORNING 90 tablet 025 2024 Discontinued Active Problems Problem Noted Date Diagnosed Date Encounter for preventive care 12/17/2023 Assessment & Plan (12/17/2023 4:22 PM EDT): See HPI Allergic conjunctivitis of both eyes 12/17/2023 Colon cancer screening 12/17/2023 Vaginal itching 03/23/2023 Encounter for Papanicolaou smear of cervix 03/23 Assessment & Plan (03/23/2023 4:39 PM EST): PAP and pelvic exam done patient to be contacted with results Closed fracture of distal end of left fibula 01/2024 Assessment & Plan (03/18/2023 11:53 AM EST): Continue to follow with orthopedics Left hip pain 12/09/2022 Assessment & Plan (12/09/2022 2:49 PM EDT): RTC in about 6-8 weeks Chronic pain of both knees 12/09/2022 Assessment & Plan (03/18/2023 11:52 AM EST): I will prescribe her walker with seat Chronic bilateral low back pain without sciatica 06/12/2022 Assessment & Plan (03/18/2023 11:53 AM EST): C/w PRN acetaminophen and flexeril Chronic cough 04/14/2018 Abnormal chest x-ray 02/01/2018 Blurring of visual image 01/28/2018 Essential hypertension 01/28/2018 Assessment & Plan (12/17/2023 4:21 PM EDT): - Aerobic exercise to reduce BP. Initial goal of 30 min walk 3-5x/week. Increase as tolerated. - low-sodium diet (goal: <2g/day) and heart healthy diet such as DASH to reduce BP and prevent ASCVD. - Home BP monitoring 1-2 x day with goal of <140/90. - Seek immediate medical attention for chest pain, palpitations, SOB, syncope, or sudden changes in mental status. - Do not change or discontinue current prescriptions without first consulting health care provider Assessment & Plan (03/18/2023 11:52 AM EST): Maintenance: BMP: up to date Lipid Panel: up to date ASCVD Risk: low risk, I started her on pravastatin 10mg daily - Aerobic exercise to reduce BP. Initial goal of 30 min walk 3-5x/week. Increase as tolerated. - low-sodium diet (goal: <2g/day) and heart healthy diet such as DASH to reduce BP and prevent ASCVD. - Home BP monitoring 1-2 x day with goal of <140/90. - Seek immediate medical attention for chest pain, palpitations, SOB, syncope, or sudden changes in mental status. - Do not change or discontinue current prescriptions without first consulting health care provider Assessment & Plan (06/12/2022 11:12 AM EDT): Maintenance: BMP: Lipid Panel: ASCVD Risk: Calculate pending updated labs EKG: Obtain baseline at f/u - Aerobic exercise to reduce BP. Initial goal of 30 min walk 3-5x/week. Increase as tolerated. - low-sodium diet (goal: <2g/day) and heart healthy diet such as DASH to reduce BP and prevent ASCVD. - Home BP monitoring 1-2 x day with goal of <140/90. - Seek immediate medical attention for chest pain, palpitations, SOB, syncope, or sudden changes in mental status. - Do not change or discontinue current prescriptions without first consulting health care provider Female stress incontinence 01/28/2018 Gastroesophageal reflux disease 01/28/2018 Assessment & Plan (12/17/2023 4:21 PM EDT): I advise patient to avoid NSAIDs, spicy and acid food, I advise to eat at the same time every day, I advise to elevate the head of the bed and take medications as prescribe Encounters Date Type Department Care Team Description 09/26/[address] [facility] [address] [place] [address] Columba Thompson MD Essential hypertension 08/17/[address] [facility] [address] [place] [address] Columba Thompson MD Chronic bilateral low back pain without sciatica from Last 3 Months Immunizations Immunization Administration Dates Next Due Influenza injectable quadriv alent preservative free 11/27/2022,2021,12/08/2018 RSV Bivalent 03/13/2023 Tdap 03/23/2023 Zoster, Recombinant 08/05/2022,2021 Social History Tobacco Use Types Packs/Day Years Used Date Smoking Tobacco: Never Passive Smoke Exposure: Never Smokeless Tobacco: Never Tobacco Cessation:Counseling Given: Not Answered Alcohol Use Standard Drinks/Week Comments Never 0 (1 standard drink = 0.6 oz pur e alcohol) Alcohol Answer Date Recorded Frequency of Alcohol Consumption Not on file 12/17/2023 Average Number of Drinks Not on file 024 Frequency of Binge Drinking Not on file 11/30 Score 0 12/17/2023 Depression Answer Date Recorded Patient Health Questionnaire-9 Score 0 06/12/2022 Housing Stability Answer Date Recorded What is your housing situation today? I have eitan mccray 06/30/[address] you li ve. Do you have problems with any of the following? None of the above 06/30/2023 Food Insecurity Answer Date Recorded Within the past 12 months, y ou worried that your food would run out before you got money to buy more: Never True 06/30/2023 Within the past 12 months,th e food you bought just didn't last and you didn't have enough money to get more: Never True Transportation Answer Date Recorded In the past 12 months, has l ack of transportation kept you from medical appts, meetings, work or from getting things needed for daily living? No 06/30/2023 Utilities Answer Date Recorded In the past 12 months, has t he [employer], gas, oil or water company threatened to shut off services in your home? No 06/30/2023 Depression Answer Date Recorded Patient Health Questionnaire-2 Score 3 12/17/2023 Comments Unknown Sex and Gender Information Value Date Recorded Sex Assigned at Female 12/30/2021 10:34 AM EDT Legal Sex Female 10:34 AM EDT Gender Identity Female 12/30/2021 10:34 AM EDT Sexual Orientation Straight 12/30/2021 10 :34 AM EDT Last Filed Vital Signs Vital Sign Reading Time Taken Comments Blood Pressure 141/68 12/17/2023 2:33 PM EDT Pulse 68 12/17/2023 2:33 PM EDT Temperature 36.9 C (98.5 F) 12/17/2023 2:33 PM EDT Respiratory Rate 18 12/17/2023 2:33 PM EDT Oxygen Saturation 97% 12/17/2023 2:33 PM EDT Inhaled Oxygen Concentration - - Weight 71.9 kg (158 lb 9.6 oz) 12/17/2023 2:33 P M EDT Height 165.1 cm (5' 5 ) 12/17/2023 2:33 PM EDT Body Mass Index 26.39 12/17/2023 2:33 PM EDT Plan of Treatment Upcoming Encounters Date Type Department Care Team (Late st Contact Info) Description 11/11/2024 2:45 PM EDT Procedure Visit [facility] [address] [place] [phone] Columba Thompson MD [address] [place] [address] 12/26/2024 10:15 AM EDT Office Visit [facility] [address] [place] [address] Columba Thompson MD [address] [place] [address] Health Maintenance Due Date Last Done Comments CT Colonography 1960 Colonoscopy 1960 FIT 1960 FOBT 1960 Sigmoidoscopy 1960 Pneumococcal Vaccine: 50+ Years (1 of 1 - PCV) 04/30/2009 COVID-19 Vaccine (2 - 2023- season) 2024 12/06/2023 SDOH Screening 06/29/2024 06/30/2023 Mammogram 09/30/2024 10/01/2023, 07/01, 07/24/2022, Additional history exists Influenza Vaccine (#1) 2024 , 11/27/2022, 2021, Additional history exists Alcohol/Substance Use Screening 12/16/2024 12/17/2023 Depression Screening 12/16/2024 12/17/2023, 06/13/19 23 Tobacco Screening 12/16/2024 12/17/2023 Colorectal Cancer Screening 12/31/2026 FIT DNA/Cologuard 12/31/2026 01/01/2024 Cervical Cancer Screening 03/23/2028 HPV/Cotest 03/23/2028 03/23/2023, 04/15/2018 Pap Smear 03/23/2028 03/23/2023, 03/23/2023 Lipid Panel 12/16/2028 12/17/2023, 05/31, 2021, Additional history exists DTaP/Tdap/Td Vaccines (2 - Td or Tdap) 03/23/2033 03/23/2023 Zoster Vaccines Completed 08/05/2022, 2021 RSV Patients and Patients Aged 60 years or older Completed 03/13/2023 Hepatitis C Screening Completed 12/17/2023 HIB Vaccines Aged Out No longer eligi ble based on patient's age to complete this topic HPV Vaccines Aged Out No longer eligi ble based on patient's age to complete this topic Hepatitis A Vaccines Aged Out No long er eligible based on patient's age to complete this topic Hepatitis B Vaccines Aged Out No long er eligible based on patient's age to complete this topic IPV Vaccines Aged Out No longer eligi ble based on patient's age to complete this topic Meningococcal B Vaccine Aged Out No l onger eligible based on patient's age to complete this topic Meningococcal Vaccine Aged Out No zachary fam eligible based on patient's age to complete this topic RSV under 20 months Aged Out No longe r eligible based on patient's age to complete this topic Rotavirus Vaccines Aged Out No longer eligible based on patient's age to complete this topic Procedures Procedure Name Priority Date/Time Associated Diagnosis Comments LAB COLOGUARD COLON CANCER SCREEN Routine 01/01/2024 9:30 AM EDT Colon cancer screening LIPID PANEL, STANDARD Routine 12/17/2023 3:38 PM EDT Encounter for preventive care HEPATITIS C AB W/REFL TO HCV RNA, QN, PCR Routine 12/17/2023 3:35 PM EDT Encounter for preventive care BI MAMMOGRAM SCREENING TOMOSYNTHESIS BILATERAL Routine 10/01/2023 4:00 PM EDT HPV MRNA E6/E7 REFLEX TO HPV 16, 18/45 Routine 03/23/2023 11:45 AM EST IMAGE-GUIDED PAP W/AGE BASED SCR,W/CT/NG/TRICH Routine 03/23/2023 11:45 AM EST Encounter for Papanicolaou smear of cervix from Last 3 Months or Most Recently Relevant to Health Maintenance Results * Cologuard?? colon cancer screening (01/01/2024 9:30 AM EDT) Cologuard Result Negative Negative 01/09/20 10:01 AM EST [facility] (CLIA #:[id number]) Comment: NEGATIVE TEST RESULT. A negative Cologuard result indicates a low likelihood that a colorectal cancer (CRC) or advanced adenoma (adenomatous polyps with more advanced pre-malignant features) is present. The chance that a person with a negative Cologuard test has a colorectal cancer is less than 1 in 1500 (negative predictive value >99.9%) or has an advanced adenoma is less than 5.3% (negative predictive value 94.7%). These data are based on a prospective cross-sectional study of 10,000 individuals at average risk for colorectal cancer who were screened with both Cologuard and colonoscopy. (Katelin Marquez et al, N Engl J Med 2014;370(14):7774-9693) The normal value (reference range) for this assay is negative. COLOGUARD RE-SCREENING RECOMMENDATION: Periodic colorectal cancer screening is an important part of preventive healthcare for asymptomatic individuals at average risk for colorectal cancer. Following a negative Cologuard result, the [place] Cancer Society and U.S. Multi-Society Task Force screening guidelines recommend a Cologuard re-screening interval of 3 years. References: [place] [employer] Guideline for Colorectal Cancer Screening: https://www.cancer.org/cancer/cmxrw-mrulwe-wfsnld/xrhgeezyz-vmobhvbih-ibjqnap/ac s-rec ommendations.html.; Kenji DK, Mik SNYDER, Marlen StuartK, Colorectal Cancer Screening: Recommendations for Physicians and Patients from the U.S. Multi-Society Task Force on Colorectal Cancer Screening , Am J Gastroenterology 2017; 112:3092-0508. TEST DESCRIPTION: Composite algorithmic analysis of stool DNA-biomarkers with hemoglobin immunoassay. Quantitative values of individual biomarkers are not reportable and are not associated with individual biomarker result reference ranges. Cologuard is intended for colorectal cancer screening of adults of either sex, 45 years or older, who are at average-risk for colorectal cancer (CRC). Cologuard has been approved for use by the U.S. FDA. The performance of Cologuard was established in a cross sectional study of average-risk adults aged 50-84. Cologuard performance in patients ages 45 to 49 years was estimated by sub-group analysis of near-age groups. Colonoscopies performed for a positive result may find as the most clinically significant lesion: colorectal cancer [4.0%], advanced adenoma (including sessile serrated polyps greater than or equal to 1cm diameter) [20%] or non- advanced adenoma [31%]; or no colorectal neoplasia [45%]. These estimates are derived from a prospective cross-sectional screening study of 10,000 individuals at average risk for colorectal cancer who were screened with both Cologuard and colonoscopy. (Katelin Rojas al, N Engl J Med 2014;370(14):2944-8491.) Cologuard may produce a false negative or false positive result (no colorectal cancer or precancerous polyp present at colonoscopy follow up). A negative Cologuard test result does not guarantee the absence of CRC or advanced adenoma (pre-cancer). The current Cologuard screening interval is every 3 years. ([place] Cancer Society and U.S. Multi-Society Task Force). Cologuard performance data in a 10,000 patient pivotal study using colonoscopy as the reference method can be accessed at the following location: www.Bozuko/results. Additional description of the Cologuard test process, warnings and precautions can be found at www.Tissuetechrd.Coupz. Stool specimen (specimen) 01/01/2024 9:30 AM EDT 01/02/2024 12:38 PM EDT Columba Fitzgerald MD LAB MOLECULAR DIAGNOS TICS ORDERABLES Final Result [facility] (CLIA #:[id number]) [address] [place] [address], [place] [phone] * (ABNORMAL) Lipid Panel, Standard (12/17/2023 3:38 PM EDT) Triglycerides 133 <150 mg/dL [facility] Comment:Desirable Triglyceri de: less than 150 mg/dLBorderline High Triglyceride 150-199 mg/dLHigh Triglyceride: 200-499 mg/dLVery High Triglyceride: greater than or equal to 5OO mg/dL Cholesterol 207(H) <200 mg/dL [facility] Comment:Desirable Cholestero l: less than 200 mg/dLBorderline High Cholesterol: 200-239 mg/dLHigh Cholesterol: greater than 239 mg/dL LDL Cholesterol Calculated 134(H) <100 mg/dL [facility] Comment:Desirable LDL: less than 100 mg/dLNear Optimal/Above Optimal LDL: 110- 129 mg/dLBorderline High LDL: 130-159 mg/dLHigh LDL: 160-189 mg/dLVery High LDL: greater than or equal to 190 mg/dL HDL Cholesterol 47 >40 mg/dL [facility] Comment:Desirable HDL: great er than 40 mg/dL Note: This HDL assay may give artificially low results in patients with liver disease. Blood Venous blood specimen / Unknown 12/17/2023 3:38 PM EDT 12/17/2023 4:18 PM EDT Columba Fitzgerald MD LAB BLOOD ORDERABLES Final Result Performing Organization Address [facility] Co de Phone Number [facility] [address] [place] [phone] * Hepatitis C Antibody with Reflex to HCV, RNA, Quantitative, Real-Time PCR (12/17/2023 3:35 PM EDT) Hepatitis C Antibody Nonreactive Nonreactive [facility] Comment:Antibodies to HCV no t detected; does not exclude early acuteHCV infection. Blood Venous blood specimen / Unknown 12/17/2023 3:35 PM EDT 12/17/2023 4:18 PM EDT us Columba Fitzgerald MD LAB BLOOD ORDERABLES Final Result Performing Organization Address [facility] Co de Phone Number [facility] [address] [place] [phone] * BI Mammogram Screening Tomosynthesis Bilateral (10/01/2023 4:00 PM EDT) Anatomical Region Laterality Modality Breast Bilateral Mammography 10/01/2023 4:00 PM EDT Narrative 10/26/2023 2:41 AM EDT [facility] [address] [place] [address] Mammography Report Signed Patient: Car Aggarwal MR#: [id number] : 1960 Acct:[id number] Age/Sex: 63 / F ADM Date: 10/01/23 Loc: HO.MAMMO Attending Dr: Columba Fitzgerald MD Ordering Physician: Columba Thompson MD Results: 1Negative Date of Service: 10/01/23 Follow Up: 1 Year From Orig inal Mammogram Procedure(s): MM tomosynthesis screening BI Accession Number(s): [id number] cc: Columba Thompson MD EXAMINATION: MM SCREENING DIGITAL BREAST TOMOSYNTHESIS, BILATERAL CLINICAL INFORMATION: Screening. Asymptomatic. COMPARISON: Mammography: This study is compared with prior exams dating back to 2018. TECHNIQUE: Digital breast tomosynthesis is performed in both the craniocaudal and mediolateral oblique views along with computer-aided detection (CAD). Synthesized 2D images are generated from the tomosynthesis. FINDINGS: There are scattered areas of fibroglandular density (ACR BI-RADS breast composition Category b). There are no significant masses, abnormal calcifications, or other abnormalities. MM/MM tomosynthesis screening BI IMPRESSION: No mammographic evidence of malignancy. ASSESSMENT: BI-RADS BI-RADS 1 - Negative RECOMMENDATION: Routine annual mammography screening. 1 year F/U This examination should not preclude the clinical evaluation of a suspicious palpable abnormality. This patient's information was entered into a reminder system with a target due date for their next mammogram. Electronically signed by: Makenzie Nguyen MD 10/26/2023 02:39 AM EDT Dictated By: Makenzie Nguyen MD Signed By: <Electronically signed by Makenzie Nguyen MD in OV> 10/26/23 0239 DD/ 1600 TD/TT: 10/01/23 1613 Hops Farmworker: Procedure Note Donotuseinterpreter, Image - 10/26/2023 [facility] [address] [place], [place] [address] Mammography Report Signed Patient: Car AggarwalMR#: [id number] : 1960Acct:[id number] Age/Sex: 63 / FADM Date: 10/01/23 Loc: HO.MAMMO Attending Dr: Columba Fitzgerald MD Ordering Physician: Columba Thompson MDResults: 1Negative Date of Service: 10/01/23Follow Up: 1 Year From Orig inal Mammogram Procedure(s): MM tomosynthesis screening BI Accession Number(s): [id number] cc: Columba Thompson MD EXAMINATION: MM SCREENING DIGITAL BREAST TOMOSYNTHESIS, BILATERAL CLINICAL INFORMATION: Screening. Asymptomatic. COMPARISON: Mammography: This study is compared with prior exams dating back to 2018. TECHNIQUE: Digital breast tomosynthesis is performed in both the craniocaudal and mediolateral oblique views along with computer-aided detection (CAD). Synthesized 2D images are generated from the tomosynthesis. FINDINGS: There are scattered areas of fibroglandular density (ACR BI-RADS breast composition Category b). There are no significant masses, abnormal calcifications, or other abnormalities. MM/MM tomosynthesis screening BI IMPRESSION: No mammographic evidence of malignancy. ASSESSMENT: BI-RADS BI-RADS 1 - Negative RECOMMENDATION: Routine annual mammography screening. 1 year F/U This examination should not preclude the clinical evaluation of a suspicious palpable abnormality. This patient's information was entered into a reminder system with a target due date for their next mammogram. Electronically signed by: Makenzie Nguyen MD 10/26/2023 02:39 AM EDT Dictated By: Makenzie Nguyen MD Signed By: <Electronically signed by Makenzie Nguyen MD in OV> 10/26/23 0239 DD/ 1600 TD/TT: 10/01/23 1613 Hops Farmworker: us Columba Fitzgerald MD IMG BI PROCEDURES Fin al Result * Image-Guided Pap with Age-Based Screening??with CT/NG,??Trichomonas (03/23/2023 11:45 AM EST) Trichomonas (NAAT) NOT DETECTED NOT DETECTED [facility] Comment:The analytical perfo rmance characteristics of thisassay have been determined by [employer]. Themodifications have not been cleared or approved bythe FDA. This assay has been validated pursuant to theCLIA regulations and is used for clinical purposes.For additional information, please refer [email or web address](This link is being provided for information/educational purposes only.)THIS TEST WAS PERFORMED AT:[employer] [address] [id number] PARRY MD CTNG Ref Lab NOT DETECTED NOT DETECTED [facility] NG Ref Lab NOT DETECTED NOT DETECTED [facility] 03/23/2023 11:4 5 AM EST 03/25/2023 11:30 AM EST Columba Fitzgerald MD LAB CYTOLOGY ORDERABL ES Final Result [facility] [address] [place] [phone] * HPV mRNA E6/E7 w/Reflex to HPV Genotypes 16, 18/45 (03/23/2023 11:45 AM EST) HPV nRNA E6/E7 Not Detected Not Detected [facility] Comment:Methodology: Transcr iption-Mediated AmplificationThis assay detects E6/E7 viral messenger RNA (mRNA) from 14high-risk HPV types (16,18,31,33,35,39,45,51,52,56,58,59,66,68).Cervical sources are required for HPV testing.If a vaginal source from a patient who has had atotal hysterectomy with removal of cervix wassubmitted, please contact the testing laboratoryfor alternative testing options.For additional information, please refer [email or web address](This link if provided for information/educational purposes only.)THIS TEST WAS PERFORMED AT:[facility] [address] [id number] PARRY MD HPV mRNA E6/E7 TNP [facility] HPV 16 RNA TNP [facility] HPV 18/45 RNA TNP [facility] 03/23/2023 11:4 5 AM EST 03/24/2023 9:30 AM EST us Columba Fitzgerald MD LAB CYTOLOGY ORDERABL ES Final Result [facility] [address] [place] [phone] from Last 3 Months or Most Recently Relevant to Health Maintenance Insurance [facility] FULL [facility] [place] [phone] Care Teams Auctioneer Tobacco Relationship Specialty Start Date End Date Columba Thompson MD [address] [place] [address] PCP - General Family Medicine 09/27/18
--- OUTSIDE RECORDS SUMMARY | 2024-10-20 15:50 | XMS_ITS | Clinical Summary ---
Author Organization [address] [place] [address] Address [address] [place] [address] Phone Care Team Providers Care Proof Technician Name Role Phone Nidhi Han MD Primary Care Provider Allergies No known active allergies Medications amLODIPine (NORVASC) 10 mg tablet Take 10 mg by mouth daily. Active bismuth subsalicylate 262 mg tablet Take by mouth. Active esomeprazole (NexIUM) [address] capsule Take 40 mg by mouth every morning (before breakfast). Active metroNIDAZOLE (FLAGYL) 250 mg tablet Take 250 mg by mouth 3 times daily. Active omeprazole (PriLOSEC) [address] capsule Take 20 mg by mouth daily. Active ondansetron (ZOFRAN) 4 mg tablet Take 4 mg by mouth every 8 hours as needed. Active tetracycline (ACHROMYCIN,SUMYCI N) 500 mg capsule Take 500 mg by mouth 4 times daily. Active TRANEXAMIC ACID ORAL Take 250 mg by mouth as needed. Active Active Problems Problem Noted Date Diagnosed Date Urinary, incontinence, stress female 10/26/2018 Hypertension 10/26/2018 Hiatal hernia 10/26/2018 GERD (gastroesophageal reflux disease) 9 Bronchiectasis (CMS/[facility] V24, CMS/HCC V28) 2018 Immunizations Name Administration Dates Next Due Tb Skin Test 08/12/2018 Medical History Medical History Date Comments Bronchiectasis (CMS/HCC V24, CMS/[facility]ER[facility] V28) 10/26/2018 DX:Bronchiectasis (HCC) GERD (gastroesophageal reflux disease) 10/26/2018 DX:GERD (gastroesophageal reflux disease) Hiatal hernia 10/26/2018 DX:Hiatal hernia History of Helicobacter pylo ri infection 10/26/2018 DX:History of Helicobacter p ylori infection Hypertension 10/26/2018 DX:Hypertension Personal history of tuberculosis 10/26/2018 DX:Personal history of tuberculosis; COMMENT: Treated in [place] in with INH and streptomycin. Treated in [place] for fungal infection in lungs in-2011. Ruled out for TB 07/2017 with 3 negative sputum CX for [employer] allowing her to immigrate to [facility] Urinary, incontinence, stress female 10/26/2018 DX:Urinary, incontinence, stress female Family History Medical History Relation Name Comments Tuberculosis Mother Relation Name Status Comments Mother Social History Tobacco Use Types Packs/Day Years Used Date Smoking Tobacco: Never Smokeless Tobacco: Never Alcohol Use Standard Drinks/Week Comments Never 0 (1 standard drink = 0.6 oz pur e alcohol) Comments Unknown Sex and Gender Information Value Date Recorded Sex Assigned at Not on file Legal Sex Female 3:35 AM EST Gender Identity Not on file Sexual Orientation Not on file Obstetrics History Last Filed Vital Signs Vital Sign Reading Time Taken Comments Blood Pressure 128/66 10/12/2023 10:35 AM EDT Sitting L Arm Pulse 65 10/12/2023 10:35 AM EDT Temperature - - Respiratory Rate - - Oxygen Saturation - - Inhaled Oxygen Concentration - - Weight 70.7 kg (155 lb 12.8 oz) 10/12/2023 10:35 AM EDT Height 162.6 cm (5' 4 ) 10/12/2023 10:3 5 AM EDT Body Mass Index 26.74 10/12/2023 10:35 AM EDT Plan of Treatment Upcoming Encounters Date Type Department Care Team (Late st Contact Info) Description 11/08/2024 2:30 PM EDT Office Visit Pulmonolgy - [facility] [address] [facility] [address] [place] [id number] Tyrel Celeste MD [address] [facility] [address] [place] [address] Health Maintenance Due Date Last Done Comments Breast Cancer Screening 1960 DTaP,Tdap,and Td Vaccines (1 - Tdap) 04/30/1978 Cervical Cancer Screening: P ap Smear 04/30/1980 Pneumococcal Vaccine: 50+ Ye ars (1 of 1 - PCV) 04/30/2009 Zoster Vaccines (1 of 2) 04/30/2009 Cholesterol Screening (Lipid Panel) 02/08/2022 Colorectal Cancer Screening: Colonoscopy 02/08/2022 Hepatitis C Screening 02/08/2022 Osteoporosis Screening (Bone Density Screening) 02/08/2022 Social Influencers of Health Screening 02/08/2022 Hypertension/CHF/CAD Annual BMP Blood Test 02/15/2022 COVID-19 Vaccine (1 - 2023-2 5 season) 2023 Depression Screening 03/02/2024 Falls Risk Assessment 04/30/2024 Influenza Vaccine (#1) 2024 RSV Immunization Adult Patie nts (1 - 1-dose 75+ series) 04/30/2034 HIB Vaccines Aged Out No longer eligi [...] on patient's age to complete this topic MMR Vaccines Aged Out No longer eligi ble based on patient's age to complete this topic Meningococcal ACWY Vaccine Aged Out N o longer eligible based on patient's age to complete this topic Meningococcal B Vaccine Aged Out No l onger eligible based on patient's age to complete this topic RSV Immunization Patients Un jerry 20 months Aged Out No longer eligible b ased on patient's age to complete this topic Varicella Vaccines Aged Out No longer eligible based on patient's age to complete this topic Insurance MEDICAID - [place] Care Teams Proof Technician Relationship Specialty Start Date End Date Nidhi Han MD [address] [place] [address] PCP - General 10/12/23
--- OUTSIDE RECORDS SUMMARY | 2024-10-20 15:50 | XMS_ITS ---
Author Name [facility] Organization Unknown Encounters Encounter Type Encounter Reason Primary Diagnosis Location Date Ambulatory [facility] 02/26/2023
== END 2024-10-20 15:48 | disposition home or self-care (01) ==
LOC: HO.MAMMO 15:47
PROVIDERS: PCP Internal Medicine; Visit Provider Internal Medicine
DX: Z12.31 Encounter for screening mammogram for malignant neoplasm of breast (principal)
CPT/HCPCS: 77063; 77067

== ENCOUNTER 2024-11-11 15:08 | Outpatient (REF) | payer MEDICAID, SELFPAY ==
--- OUTSIDE RECORDS SUMMARY | 2024-11-11 14:45 | XMS_ITS | Encounter Summary ---
Author Organization [employer] Address [address] [facility] [address] [place] [address] Care Team Providers Care Staff Pharmacist Name Role Phone Elliott Thompson MD Primary Care Provide r Encounter Details Date Type Department Care Team (Latest Contact Info) Description 11/11/2024 2:45 PM EDT Procedure Visit [facility] [address] [place], [place] [phone] Elliott Thompson MD [address] [place], [place] [phone] Encounter for Papanicolaou smear of cervix Social History Tobacco Use Types Packs/Day Years Used Date Smoking Tobacco: Never Passive Smoke Exposure: Never Smokeless Tobacco: Never Alcohol Use Standard [...] the past 12 months, has t he electric, gas, oil or water company threatened to shut off services in your home? No 06/30/2023 Depression Answer Date Recorded Patient Health Questionnaire-2 Score 3 12/17/2023 Comments Unknown Sex and Gender Information Value Date Recorded Sex Assigned at Female 12/30/2021 10:34 AM EDT Legal Sex Female 10:34 AM EDT Gender Identity Female 12/30/2021 10:34 AM EDT Sexual Orientation Straight 12/30/2021 10 :34 AM EDT documented as of this encounter Last Filed Vital Signs Vital Sign Reading Time Taken Comments Blood Pressure 124/80 11/11/2024 2:54 PM EDT Pulse 76 11/11/2024 2:54 PM EDT Temperature 36.1 C (96.9 F) 11/11/2024 2:54 PM EDT Respiratory Rate 20 11/11/2024 2:54 PM EDT Oxygen Saturation 96% 11/11/2024 2:54 PM EDT Inhaled Oxygen Concentration - - Weight 69.4 kg (153 lb) 11/11/2024 2:54 PM EDT Height 162.6 cm (5' 4 ) 11/11/2024 2:54 PM EDT Body Mass Index 26.26 11/11/2024 2:54 PM EDT documented in this encounter Functional Status * Over the last 2 weeks, how often have you been bothered by any of the following problems? Question Answer Date of Assessment Author Feeling nervous, anxious, or on edge 1 10/31 3:14 PM EDT Gracia Scott MA Not being able to stop or co ntrol worrying 1 11/11/2024 3:14 PM EDT Gracia Scott MA Worrying too much about diff erent things 0 11/11/2024 3:14 PM EDT Gracia Sctot MA Trouble relaxing 2 11/11/2024 3:14 PM EDT H Gracia toledo MA Being so restless that it is hard to sit still 1 11/11/2024 3:14 PM EDT Gracia Scott MA Becoming easily annoyed or irritable 0 10/31 3:14 PM EDT Gracia Scott MA Feeling afraid as if somethi ng awful might happen 0 11/11/2024 3:14 PM EDT Gracia Scott MA CANDIS-7 Total Score 5 11/11/2024 3:14 PM EDT Gracia Scott MA documented as of this encounter Progress Notes * Elliott Fitzgerald MD - 11/11/2024 2:45 PM EDT SUBJECTIVE: Car Aggarwal is a 64 y.o. year old female who presents for Pap . Patient is here for Pap smear she denies any breast pain, changes in breast skin, lumps, nipple retraction or discharge Patient denies any pelvic pain, vaginal discharge or bleeding Acute Concerns: None Social History Social History Narrative Not on file Problem List[1] Abnormal chest x-ray Blurring of visual image Chronic cough Essential hypertension Female stress incontinence Gastroesophageal reflux disease Chronic bilateral low back pain without sciatica Left hip pain Chronic pain of both knees Closed fracture of distal end of left fibula Vaginal itching Encounter for Papanicolaou smear of cervix Encounter for preventive care Allergic conjunctivitis of both eyes Colon cancer screening Family History[2] Review of Systems Constitutional: Negative. HENT: Negative. Respiratory: Negative. Cardiovascular: Negative. Genitourinary: Negative. OBJECTIVE: Vitals: 11/11/24 1454 BP: 124/80 BP Location: Left arm Patient Position: Sitting BP Cuff Size: Adult Pulse: 76 Resp: 20 Temp: 96.9 ??F (36.1 ??C) TempSrc: Temporal SpO2: 96% Weight: 153 lb (69.4 kg) Height: 5' 4 (1.626 m) Physical Exam Exam conducted with a pipe bending machine operator present. Constitutional: Appearance: Normal appearance. Cardiovascular: Rate and Rhythm: Normal rate and regular rhythm. Pulmonary: Effort: Pulmonary effort is normal. Breath sounds: Normal breath sounds. Genitourinary: Vagina: Normal. Cervix: Normal. Neurological: Mental Status: She is alert. Follow Up: No follow-ups on file. Medications Ordered Prior to Encounter[3] Problem List Items Addressed This Visit Encounter for Papanicolaou smear of cervix Pap smear and pelvic exam done today Patient will be contacted with results Relevant Orders Pap Smear [1] Patient Active Problem List Diagnosis Abnormal chest x-ray Blurring of visual image Chronic cough Essential hypertension Female stress incontinence Gastroesophageal reflux disease Chronic bilateral low back pain without sciatica Left hip pain Chronic pain of both knees Closed fracture of distal end of left fibula Vaginal itching Encounter for Papanicolaou smear of cervix Encounter for preventive care Allergic conjunctivitis of both eyes Colon cancer screening [2] No family history on file. [3] Current Outpatient Medications on File Prior to Visit Medication Sig Dispense Refill amLODIPine (Norvasc) 10 MG tablet TAKE 1 TABLET BY MOUTH EVERY DAY IN THE MORNING 90 tablet 0 azithromycin (Zithromax Z-Varun) 250 MG tablet Take 2 tablets once on day 1, then 1 tablet 1x/day for4 days. 6 tablet 0 cholecalciferol (Vitamin D-3) 25 MCG (1000 UT) tablet Take 1 tablet (25 mcg) by mouth in the morning. 60 tablet 1 D3 Super Strength 50 MCG (2000 UT) capsule TAKE 1 CAPSULE BY MOUTH EVERY DAY 90 capsule 3 Diclofenac Sodium 1 % gel APPLY 1 EACH TOPICALLY EVERY 12 (TWELVE) HOURS IF NEEDED (APPLY ON AFFECTED AREA). 100 g 2 docusate sodium (Colace) 100 MG capsule TAKE NEEDED IF CONSTIPATION 10 capsule 0 esomeprazole (NexIUM) [address] capsule TAKE 1 CAPSULE BY MOUTH EVERY DAY WITH BREAKFAST 90 capsule 0 esomeprazole (NexIUM) 40 MG packet Take 40 mg by mouth before breakfast. 30 each 1 Ketotifen Fumarate 0.035 % solution ADMINISTER 1 DROP INTO AFFECTED EYE(S) EVERY 12 (TWELVE) HOURS IF NEEDED (ONE DROP IN EACH EYE TWICE A DAY IF NEEDED). 10 mL 1 pravastatin (Pravachol) 10 MG tablet Take 1 tablet (10 mg) by mouth Once per day. 30 tablet 11 simethicone (Mylicon,Gas-X) 180 MG capsule Take 1 capsule (180 mg) by mouth every 8 (eight) hours if needed for flatulence (take as needed with meals 3 times a day). 90 capsule 1 No current facility-administered medications on file prior to visit. documented in this encounter Miscellaneous Notes * Assessment & Plan Note - Elliott Fitzgerald MD - 11/11/2024 3:19 PM EDT Associated Problem(s): Encounter for Papanicolaou smear of cervix Pap smear and pelvic exam done today Patient will be contacted with results * Addendum Note - Elliott Fitzgerald MD - 11/11/2024 2:45 PM EDTAddended by: ELLIOTT QUARLES on: 11/14/2024 01:48 PM Modules accepted: Orders documented in this encounter Plan of Treatment Upcoming Encounters Date Type Department Care Team (Late st Contact Info) Description 12/26/2024 10:15 AM EDT Office Visit [facility] [address] [place] [id number] Elliott Thompson MD [address] [place] [id number] Scheduled Orders Name Type Priority Associated Diagnoses Orde r Schedule Pap Smear Pathology and Cytology Routine Encounter for Papanicolaou smear of cervix Ordered: 11/11/2024 Pap Smear Pathology and Cytology Routine Encounter for Papanicolaou smear of cervix Ordered: 11/14/2024 documented as of this encounter Visit Diagnoses Diagnosis Encounter for Papanicolaou smear of cervix documented in this encounter Additional Health Concerns Assessment Noted Time PHQ-9 Depression Total Score: 0 06/13/19 23 10:29 AM EDT documented as of this encounter Care Teams Staff Pharmacist Relationship Specialty Start Date End Date Elliott Thompson MD [address] [place] [id number] PCP - General Family Medicine 09/27/18 documented as of this encounter
--- OUTSIDE RECORDS SUMMARY | 2024-11-17 15:20 | XMS_ITS | Clinical Summary ---
Author Organization [employer] Address [address] [facility] 7t [place] [address] Care Team Providers Care Boat Engine Mechanic Name Role Phone Columba Thompson MD Primary [...] IF NEEDED). 10 mL 1 025 Active Diclofenac Sodium 1 % gelIndications:Ch ronic bilateral low back pain without sciatica APPLY 1 EACH TOPICALLY EVERY 12 (TWELVE) HOURS IF NEEDED (APPLY ON AFFECTED AREA). 100 g 2 025 Active amLODIPine (Norvasc) 10 MG tabletIndications :Essential hypertension TAKE 1 TABLET BY MOUTH EVERY DAY IN THE MORNING 90 tablet 025 Active esomeprazole (NexIUM) [address] capsuleIndication s:Gastroesophagea l reflux disease, unspecified whether esophagitis present TAKE 1 CAPSULE BY MOUTH EVERY DAY WITH BREAKFAST 90 capsule 025 Active esomeprazole (NexIUM) [address] capsuleIndication s:Gastroesophagea l reflux disease, unspecified whether esophagitis present TAKE 1 CAPSULE BY MOUTH EVERY DAY WITH BREAKFAST 90 capsule 025 2024 Discontinued Active Problems Problem Noted Date Diagnosed Date Encounter for preventive care 12/17/2023 Assessment & Plan (12/17/2023 4:22 PM EDT): See HPI Allergic conjunctivitis of both eyes 12/17/2023 Colon cancer screening 12/17/2023 Vaginal itching 03/23/2023 Encounter for Papanicolaou smear of cervix 03/23 Assessment & Plan (11/11/2024 3:19 PM EDT): Pap smear and pelvic exam done today Patient will be contacted with results Assessment & Plan (03/23/2023 4:39 PM EST): [...] Encounters Date Type Department Care Team Description 11/14/2024 Refill [facility] [address] [place] [address] Columba Thompson MD Gastroesophageal reflux disease, unspecified whether esophagitis present 11/11/2024 2:45 PM EDT Procedure Visit [facility] [address] [place] [address] Columba Thompson MD Encounter for Papanicolaou smear of cervix 11/11/2024 Travel 11/10/2024 Telephone [facility] [address] [place] [address] Columba Thompson MD chart prep 10/20/2024 Orders Only [facility] [address] [place] [address] Columba Thompson MD 09/26/2024 Refill [facility] [address] [place] [address] Columba Thompson MD Essential hypertension 08/17/2024 Refill [facility] [address] [place] [address] Columba Thompson MD Chronic bilateral low back [...] Mass Index 26.26 11/11/2024 2:54 PM EDT Plan of Treatment Upcoming Encounters Date Type Department Care Team (Late st Contact Info) Description 12/26/2024 10:15 AM EDT Office Visit [facility] [address] [place], [place] [phone] Columba Thompson MD [address] [place], [place] [phone] Health Maintenance Due Date Last Done Comments CT Colonography 1960 Colonoscopy 1960 FIT 1960 Sigmoidoscopy 1960 Pneumococcal Vaccine: 50+ Years (1 of 1 - PCV) 04/30/2009 SDOH Screening 06/29/2024 06/30/2023 COVID-19 Vaccine (2 - season) 2024 12/06/2023 Influenza Vaccine (#1) 2024 , 11/27/2022, 2021, Additional history exists Depression Screening 12/16/2024 12/17/2023, 06/13/19 23 FOBT 12/31/2024 01/01/2024 Mammogram 10/20/2025 10/20/2024, 08/0 03/2023, 07/24/2022, Additional history exists Alcohol/Substance Use Screening 11/11/2025 11/11/2024 Tobacco Screening 11/11/2025 11/11/2024 Colorectal Cancer Screening 12/31/2026 FIT DNA/Cologuard 12/31/2026 01/01/2024 Cervical Cancer Screening 03/23/2028 HPV/Cotest 03/23/2028 11/14/2024, 03/03, 04/15/2018 Pap Smear 03/23/2028 03/23/2023, 03/23/2023 Lipid [...] Procedure Name Priority Date/Time Associated Diagnosis Comments HPV DNA, LOW/HIGH RISK Routine 11/14/2024 12:00 AM EDT BI MAMMOGRAM SCREENING TOMOSYNTHESIS BILATERAL Routine 10/20/2024 3:50 PM EDT LAB COLOGUARD COLON CANCER SCREEN Routine 01/01/2024 9:30 AM EDT Colon cancer screening LIPID PANEL, STANDARD Routine 12/17/2023 3:38 PM EDT Encounter for preventive care HEPATITIS C AB W/REFL TO HCV RNA, QN, PCR Routine 12/17/2023 3:35 PM EDT Encounter for preventive care IMAGE-GUIDED PAP W/AGE BASED SCR,W/CT/NG/TRICH Routine 03/23/2023 11:45 AM EST Encounter for Papanicolaou smear of cervix from Last 3 Months or Most Recently Relevant to Health Maintenance Results * HPV DNA, Low/High Risk (11/14/2024 12:00 AM EDT) HPV High Risk Negative Negative [facility] HPV Genotype 16 Negative Negative [facility] HPV Genotype 18 Negative Negative [facility] Comment:HPV testing performe d at [facility] (CLIA#[id number]), [address] [place] [address].Testing for HPV was performed using the [employer]system. The presence of HPV in the female genital tract isassociated with a number of diseases, including cervicalcarcinoma. The HPV DNA high risk pool tests for HPV 31, 33,35, 39, 45, 51, 52, 56, 58, 59, 66 and 68. The testing forHPV 16 and 18 genotypes has also been performed. A positiveresult indicates detection of nucleic acid sequences fromone or more subtypes, whereas a negative result indicatessuch sequences were not detected. 11/14/2024 11/14/2024 11: 58 AM EDT us Columba Fitzgerald MD LAB BLOOD ORDERABLES Final Result [facility] [address] [place] [address] [phone] * BI Mammogram Screening Tomosynthesis Bilateral (10/20/2024 3:50 PM EDT) Anatomical Region Laterality Modality Breast Bilateral Mammography 10/20/2024 3:50 PM EDT Narrative 10/25/2024 9:05 AM EDT [facility] [address] [place] [address] Mammography Report Signed Patient: Car Aggarwal MR#: [id number] : 1960 Acct:[id number] Age/Sex: 64 / F ADM Date: 10/20/24 Loc: HO.MAMMO Attending Dr: Columba Fitzgerald MD Ordering Physician: Columba Thompson MD Results: 1Negative Date of Service: 10/20/24 Follow Up: 1 Year From Orig inal Mammogram Procedure(s): MM tomosynthesis screening BI Accession Number(s): [id number] cc: Columba Thompson MD EXAMINATION: MM SCREENING DIGITAL BREAST TOMOSYNTHESIS, BILATERAL CLINICAL INFORMATION: Screening. Asymptomatic. COMPARISON: Mammography: Comparison is made with available priors TECHNIQUE: Digital breast mammography with tomosynthesis is performed in both the craniocaudal and mediolateral oblique views along with computer-aided detection (CAD). FINDINGS: There are scattered areas of fibroglandular [...] for their next mammogram. Electronically signed by: Corina Baig DO 10/25/2024 09:02 AM EDT Dictated By: Corina Baig DO Signed By: <Electronically signed by Corina Baig DO in OV> 10/25/24 0902 DD/ 1550 TD/TT: 10/20/24 1603 Director Cardiac: Procedure Note Donotuseinterpreter, Image - 10/25/2024 [facility] [address] [place] [address] Mammography Report Signed Patient: Car AggarwalMR#: [id number] : 1960Acct:[id number] Age/Sex: 64 / FADM Date: 10/20/24 Loc: HO.MAMMO Attending Dr: Columba Fitzgerald MD Ordering Physician: Columba Thompson MDResults: 1Negative Date of Service: 10/20/24Follow Up: 1 Year From Orig ina Mammogram Procedure(s): MM tomosynthesis screening BI Accession Number(s): [id number] cc: Columba Thompson MD EXAMINATION: MM SCREENING DIGITAL BREAST TOMOSYNTHESIS, BILATERAL CLINICAL INFORMATION: Screening. Asymptomatic. COMPARISON: Mammography: Comparison is made with available priors TECHNIQUE: Digital breast mammography with tomosynthesis is performed in both the craniocaudal and mediolateral oblique views along with computer-aided detection (CAD). FINDINGS: There are scattered areas of fibroglandular [...] for their next mammogram. Electronically signed by: Corina Baig DO 10/25/2024 09:02 AM EDT Dictated By: Corina Baig DO Signed By: <Electronically signed by Corina Baig DO in OV> 10/25/24 0902 DD/ 1550 TD/TT: 10/20/24 1603 Director Cardiac: us Columba Fitzgerald MD IMG BI PROCEDURES Fin al Result * Cologuard?? colon cancer screening (01/01/2024 9:30 AM EDT) Cologuard Result Negative Negative 01/09/20 10:01 AM [facility] (CLIA #:[id number]) Comment: NEGATIVE TEST RESULT. A negative Cologuard [...] Marquez et al, N Engl J Med 2014;370(14):9792-2024) The normal value (reference range) for this assay is negative. COLOGUARD RE-SCREENING RECOMMENDATION: Periodic colorectal cancer screening is an important part of preventive healthcare for asymptomatic individuals at average risk for colorectal cancer. Following a negative Cologuard result, the [place] [employer] Society and U.S. Multi-Society Task Force screening guidelines recommend a Cologuard re-screening interval of 3 years. References: [place] [employer] Guideline for Colorectal Cancer Screening: https://www.cancer.org/cancer/kucug-qezael-vsuzbu/yryfjtrwh-vroubchia-acsqrsx/ac s-rec ommendations.html.; Kenji DK, Mik CR, Marlen StuartK, Colorectal Cancer Screening: Recommendations for Physicians and Patients from the U.S. Multi-Society Task Force on Colorectal Cancer Screening , Am J Gastroenterology 2017; 112:6612-1307. TEST DESCRIPTION: Composite algorithmic analysis of stool [...] (Katelin Rojas al, N Engl J Med 2014;370(14):7842-4065.) Cologuard may produce a false negative or false positive result (no colorectal cancer or precancerous polyp present at colonoscopy follow up). A negative Cologuard test result does not guarantee the absence of CRC or advanced adenoma (pre-cancer). The current Cologuard screening interval is every 3 years. ([place] Cancer Society and U.S. Multi-Society Task Force). Cologuard performance data in a 10,000 patient pivotal study using colonoscopy as the reference method can be accessed at the following location: www.[employer]/results. Additional description of the Cologuard test process, warnings and precautions can be found at www.[employer].com. Stool specimen (specimen) 01/01/2024 9:30 AM EDT 01/02/2024 12:38 PM EDT Columba Fitzgerald MD LAB MOLECULAR DIAGNOS TICS ORDERABLES Final Result [facility] (CLIA #:[id number]) [address] [place] [address], * (ABNORMAL) Lipid Panel, Standard (12/17/2023 3:38 PM EDT) Triglycerides 133 <150 mg/dL [facility] Comment:Desirable Triglyceri de: less than 150 mg/dLBorderline High Triglyceride 150-199 mg/dLHigh Triglyceride: 200-499 mg/dLVery High Triglyceride: greater than or equal to 5OO mg/dL Cholesterol 207(H) <200 mg/dL [facility] Comment:Desirable Cholestero l: less than 200 mg/dLBorderline High Cholesterol: 200-239 mg/dLHigh Cholesterol: greater than 239 mg/dL LDL Cholesterol Calculated 134(H) <100 mg/dL [facility] Comment:Desirable LDL: less than 100 mg/dLNear Optimal/Above Optimal LDL: 110- 129 mg/dLBorderline High LDL: 130-159 mg/dLHigh LDL: 160-189 mg/dLVery High LDL: greater than or equal to 190 mg/dL HDL Cholesterol 47 >40 mg/dL [facility] Comment:Desirable HDL: great er than 40 mg/dL Note: This HDL assay may give artificially low results in patients with liver disease. Blood Venous blood specimen / Unknown 12/17/2023 3:38 PM EDT 12/17/2023 4:18 PM EDT Columba Fitzgerald MD LAB BLOOD ORDERABLES Final Result Performing Organization Address [facility] Co de Phone Number [facility] [address] [place] [phone] * Hepatitis C Antibody with Reflex to HCV, RNA, Quantitative, Real-Time PCR (12/17/2023 3:35 PM EDT) Hepatitis C Antibody Nonreactive Nonreactive [facility] Comment:Antibodies to HCV no t detected; does not exclude early acuteHCV infection. Blood Venous blood specimen / Unknown 12/17/2023 3:35 PM EDT 12/17/2023 4:18 PM EDT us Columba Fitzgerald MD LAB BLOOD ORDERABLES Final Result Performing Organization Address City/[facility] Co de Phone Number [facility] [address] [place] [phone] * Image-Guided Pap with Age-Based Screening??with CT/NG,??Trichomonas (03/23/2023 11:45 AM EST) Trichomonas (NAAT) NOT DETECTED NOT DETECTED [facility] Comment:The analytical perfo rmance characteristics of thisassay have been determined by [employer]. Themodifications have not been cleared or approved bythe FDA. This assay has been validated pursuant to theCLIA regulations and is used for clinical purposes.For additional information, please refer tohttp://education.[employer]/faq/Trichomonastma(This link is being provided for information/educational purposes only.)THIS TEST WAS PERFORMED AT:[employer] [place] [phone] PARRY MD CTNG Ref Lab NOT DETECTED NOT DETECTED [facility] NG Ref Lab NOT DETECTED NOT DETECTED [facility] 03/23/2023 11:4 5 AM EST 03/25/2023 11:30 AM EST us Columba Fitzgerald MD LAB CYTOLOGY ORDERABL ES Final Result [facility] [address] [place] [address] [phone] from Last 3 Months or Most Recently Relevant to Health Maintenance Insurance [address] [address] STANDARD Care Teams Boat Engine Mechanic Relationship Specialty Start Date End Date Columba Thompson MD [address] [place] [phone] PCP - General Family Medicine 09/27/18
--- OUTSIDE RECORDS SUMMARY | 2024-11-17 15:20 | XMS_ITS | Encounter Summary ---
Author Organization [employer] Address [address] [facility] 7t [place] [address] Care Team Providers Care Whitesmith Name Role Phone Columba Thompson MD Primary Care Provide r Encounter Details Date Type Department Care Team (Late st Contact Info) Description 03/26/[address] [facility] [address] [place], [place] [phone] Columba Thompson MD [address] [place], [place] [phone] Social History Tobacco Use Types Packs/Day Years Used Date Smoking Tobacco: Never Passive Smoke Exposure: Never Smokeless Tobacco: Never Depression Answer Date Recorded Patient Health Questionnaire-9 Score 0 06/12/2022 Housing Stability Answer Date Recorded What is your housing situation today? I have eitan mccray 01/10/[address] you li ve. Do you have problems with any of the following? None of the above 01/10/2023 Food Insecurity Answer Date Recorded Within the past 12 months, y ou worried that your food would run out before you got money to buy more: Never True 01/10/2023 Within the past 12 months,th e food you bought just didn't last and you didn't have enough money to get more: Never True 12/2022 Transportation Answer Date Recorded In the past 12 months, has l ack of transportation kept you from medical appts, meetings, work or from getting things needed for daily living? No 01/10/2023 Utilities Answer Date Recorded In the past 12 months, has t he electric, gas, oil or water company threatened to shut off services in your home? No 01/10/2023 Depression Answer Date Recorded Patient Health Questionnaire-2 Score 0 06/12/2022 Comments Unknown Sex and Gender Information Value Date Recorded Sex Assigned at Female 12/30/2021 10:34 AM EDT Legal Sex Female 10:34 AM EDT Gender Identity Female 12/30/2021 10:34 AM EDT Sexual Orientation Straight 12/30/2021 10 :34 AM EDT documented as of this encounter Plan of Treatment Upcoming Encounters Date Type Department Care Team (Late st Contact Info) Description 12/26/2024 10:15 AM EDT Office Visit [facility] [address] [place] [address] Columba Thompson MD [address] [place], [place] [phone] documented as of this encounter Visit Diagnoses Not on filedocumented in this encounter Additional Health Concerns Assessment Noted Time PHQ-9 Depression Total Score: 0 06/13/19 23 10:29 AM EDT documented as of this encounter Care Teams Whitesmith Relationship Specialty Start Date End Date Columba Thompson MD [address] [place] [phone] PCP - General Family Medicine 09/27/18 documented as of this encounter
--- OUTSIDE RECORDS SUMMARY | 2024-11-17 15:20 | XMS_ITS | Encounter Summary ---
Author Organization [employer] Address [address] [facility] 7t [place] [address] Care Team Providers Care Chief Maintenance Supervisor Name Role Phone Columba Thompson MD Primary Care Provide r Reason for Visit * Reason Comments Med Refill Encounter Details Date Type Department Care Team ([facility] st Contact Info) Description 02/29/2024 Refill [facility] [address] [place], [place] [phone] Columba Thompson MD [address] [place], [place] [phone] Essential hypertension Social History Tobacco Use Types Packs/Day Years [...] Description 12/26/2024 10:15 AM EDT Office Visit [facility] [address] [place] [phone] Columba Thompson MD [address] [place] [address] documented as of this encounter Visit Diagnoses Diagnosis Essential hypertension Unspecified essential hypertension documented in this encounter Additional Health Concerns Assessment Noted Time PHQ-9 Depression Total Score: 0 06/13/19 23 10:29 AM EDT documented as of this encounter Care Teams Chief Maintenance Supervisor Relationship Specialty Start Date End Date Columba Thompson MD [address] [place] [phone] PCP - General Family Medicine 09/27/18 documented as of this encounter
--- OUTSIDE RECORDS SUMMARY | 2024-11-17 15:20 | XMS_ITS | Encounter Summary ---
Author Organization [employer] Address [address] [facility] 7t [place] [address] Care Team Providers Care Trial Mgr Name Role Phone Columba Thompson MD Primary Care Provide r Reason for Visit * Reason Comments Med Refill Encounter Details Date Type Department Care Team ([facility] st Contact Info) Description 11/14/2024 Refill [facility] [address] [place], [place] [phone] Columba Thompson MD [address] [place], [place] [phone] Gastroesophageal reflux disease, unspecified whether esophagitis present Social History Tobacco Use Types Packs/Day Years [...] Description 12/26/2024 10:15 AM EDT Office Visit [facility] [address] [place] [phone] Columba Thompson MD [address] [place] [address] documented as of this encounter Visit Diagnoses Diagnosis Gastroesophageal reflux disease, unspecified whether esophagitis present documented in this encounter Additional Health Concerns Assessment Noted Time PHQ-9 Depression Total Score: 0 06/13/19 23 10:29 AM EDT documented as of this encounter Care Teams Trial Mgr Relationship Specialty Start Date End Date Columba Thompson MD [address] [place] [phone] PCP - General Family Medicine 09/27/18 documented as of this encounter
--- OUTSIDE RECORDS SUMMARY | 2024-11-17 15:20 | XMS_ITS | Encounter Summary ---
Author Organization [employer] Address [address] [facility] 7t [place] [address] Care Team Providers Care Fish Drier Name Role Phone Columba Thompson MD Primary Care Provide r Encounter Details Date Type Department Care Team ([facility] st Contact Info) Description 02/20/2023 Telephone [facility] [address] [place], [place] [phone] Columba Thompson MD [address] [place], [place] [phone] Social History Tobacco Use Types Packs/Day Years [...] Description 12/26/2024 10:15 AM EDT Office Visit [facility] [address] [place] [address] Columba Thompson MD [address] [place], [place] [phone] documented as of this encounter Visit Diagnoses Not on filedocumented in this encounter Additional Health Concerns Assessment Noted Time PHQ-9 Depression Total Score: 0 06/13/19 23 10:29 AM EDT documented as of this encounter Care Teams Fish Drier Relationship Specialty Start Date End Date Columba Thompson MD [address] [place] [phone] PCP - General Family Medicine 09/27/18 documented as of this encounter
--- OUTSIDE RECORDS SUMMARY | 2024-11-17 15:20 | XMS_ITS | Clinical Summary ---
Author Organization [address] [place] [address] [place] [phone] Phone Care Team Providers Care Osteology Teacher Name Role Phone Nidhi Han MD Primary [...] 10/26/2018 GERD (gastroesophageal reflux disease) 9 Bronchiectasis (CMS/[facility] V24, CMS/[facility] V28) 2018 Encounters Date Type Department Care Team Description 11/08/2024 1:00 PM EDT Office Visit [facility] [place] [phone] Tyrel Celeste MD Bronchiectasis without complication (CMS/HCC V24, CMS/[facility] V28) (Primary Dx); History of TB (tuberculosis) from Last 3 Months Immunizations Name Administration Dates Next Due Tb Skin Test 08/12/2018 Medical History Medical History Date Comments Bronchiectasis (CMS/HCC V24, CMS/HCC V28) 10/26/2018 DX:Bronchiectasis (HCC) GERD (gastroesophageal reflux disease) 10/26/2018 DX:GERD (gastroesophageal reflux disease) Hiatal hernia 10/26/2018 DX:Hiatal hernia History of Helicobacter pylo ri infection 10/26/2018 DX:History of Helicobacter p ylori infection Hypertension 10/26/2018 DX:Hypertension Personal history of tuberculosis 10/26/2018 DX:Personal history of tuberculosis; COMMENT: Treated in [facility] in with INH and streptomycin. Treated in [facility] for fungal infection in lungs in-2011. Ruled out for TB 07/2017 with 3 negative sputum CX for AF[employer] allowing her to immigrate to [facility] Urinary, incontinence, stress female 10/26/2018 DX:Urinary, incontinence, [...] Sign Reading Time Taken Comments Blood Pressure 114/60 11/08/2024 1:12 PM EDT Pulse 62 11/08/2024 1:12 PM EDT Temperature 36.2 C (97.2 F) 11/08/2024 1:12 PM EDT Respiratory Rate 16 11/08/2024 1:12 PM EDT Oxygen Saturation 99% 11/08/2024 1:12 PM EDT Inhaled Oxygen Concentration - - Weight 69.1 kg (152 lb 6.4 oz) 11/08/2024 1:12 P M EDT Height 162.6 cm (5' 4 ) 11/08/2024 1:12 PM EDT Body Mass Index 26.16 11/08/2024 1:12 PM EDT Plan of Treatment Upcoming Encounters Date Type Department Care Team (Late st Contact Info) Description 11/15/2025 1:00 PM EDT Office Visit Pulmonolgy - [place] [address] [place] [phone] Tyrel Celeste MD [address] [facility] [address] [place] [address] Health Maintenance Due Date Last Done Comments Breast Cancer Screening 1960 Cervical Cancer Screening: Pap Smear 04/30/1980 Pneumococcal Vaccine: 50+ Years (1 of 1 - PCV) 04/30/2009 Colorectal Cancer Screening: Colonoscopy 02/08/2022 Osteoporosis Screening (Bone Density Screening) 02/08/2022 Social Influencers of Health Screening 02/08/2022 Hypertension/CHF/CAD Annual BMP Blood Test 02/15/2022 Depression Screening 03/02/2024 Falls Risk Assessment 04/30/2024 COVID-19 Vaccine (2 - 2023- season) 2024 12/06/2023 Cholesterol Screening (Lipid Panel) 12/16/2028 12/17/2023 DTaP,Tdap,and Td Vaccines (2 - Td or Tdap) 03/23/2033 03/23/2023 Zoster Vaccines Completed 08/05/2022, 2021 RSV Immunization Adult Patients Completed 03/13/2023 Hepatitis C Screening Completed 12/17/2023 Influenza Vaccine Completed 10/30/2024, , 11/27/2022, Additional history exists HIB Vaccines Aged Out No longer eligi [...] to complete this topic RSV Immunization Patients Under 20 months Aged Out No longer eligible based on patient's age to complete this topic Varicella Vaccines Aged Out No longer eligible based on patient's age to complete this topic Insurance MEDICAID - [place] Care Teams Osteology Teacher Relationship Specialty Start Date End Date Nidhi Han MD [address] [place] [address] PCP - General 10/12/23
== END 2024-11-11 15:09 | disposition home or self-care (01) ==
LOC: HO.LNP 15:08
PROVIDERS: Visit Provider Internal Medicine
DX: Z12.4 Encounter for screening for malignant neoplasm of cervix (principal)
CPT/HCPCS: 87626; 88175